=== PATIENT | female | born 1960 | race Caucasian/White ===

== ENCOUNTER 2017-02-13 15:24 | Emergency (ER) | payer OTHER ==
[~2017-02-13] VITALS: Ht 160 cm; Wt 59.0 kg
[2017-02-13 15:24] VITALS: BP 147/79; Ht 160 cm; Wt 59.0 kg
[~2017-02-13 15:24] MED LIST: FLO4 PO; MAC100 PO; NORCO1 TA2 PO; ZOF4 PO
== END 2017-02-13 15:34 | disposition left against medical advice (07) ==
LOC: ED 15:24
DX: Z53.21 Procedure and treatment not carried out due to patient leaving prior to being seen by health care provider (principal)